=== PATIENT | male | born 1985 | race Caucasian/White ===

== ENCOUNTER 2016-10-09 12:13 | Emergency (ER) | payer SELFPAY ==
[2016-10-09 12:39] VITALS: BP 113/69
--- NOTE | 2016-10-09 15:01 | ERNOTE ---
Medical Problem HPI - Narrative Date of Service: 10/09/16 - General Chief Complaint: Nausea/Vomiting Time Seen by Provider: 10/09/16 14:34 Source: patient Exam Limitations: no limitations - Immun/Allergies/Home Medications Immunizations: IMMUNIZATION HX Immunizations Up to Date No History of Influenza Vaccine No Hx Pneumococcal Vaccination No Allergies/Adverse Reactions: Allergies No Known Allergies Allergy (Verified 10/09/16 12:39) Home Medications: HOME MEDICATIONS Ondansetron [Zofran Odt] 4 mg PO Q6H PRN #20 tab 10/09/16 [Last Taken Unknown] - History of Present History Narrative: Pt. comes in with c/o nausea and vomiting since 0200 this morning. Pt. states that it has been accompanied by rhinorrhea, cough, and sore throat. Pt. denies any chest pain or abd pain. Pt. denies any alleviating factors, aggravating factors, or prehospital treatment. Review of Systems - Review of Systems Constitutional: Present: no symptoms reported, decreased activity level. Absent : recent illness, fever, chills, fatigue, malaise ENT: Present: nose congestion, nasal drainage, sore throat Respiratory: Present: cough. Absent: shortness of breath, wheezing Cardiology: Present: no symptoms reported. Absent: chest pain, palpitations, edema Gastrointestinal/Abdominal: Present: nausea, vomiting. Absent: diarrhea, constipation, abdominal pain Genitourinary: Present: no symptoms reported Musculoskeletal: Present: no symptoms reported. Absent: back pain, joint pain Skin: Present: no symptoms reported Neurological: Present: no symptoms reported. Absent: headache, dizziness/light- headedness, numbness, tingling All Other Systems: All systems neg except as marked - Patient's Past Medical History Patient History - Medical: Anxiety, Headache, Migraines Patient History - Cardiac/Respiratory: Asthma Patient History - Cancer: No Hx of Cancer Patient History - Surgical Procedures: Appendectomy, T & A - Social History Living Situations: home Alcohol Use: rarely Drug Use: none Physical Exam - Physical Exam General Appearance: Present: wd/wn, alert, no apparent distress Eye Exam: Normal inspection: bilateral, PERRL: bilateral, EOMI: bilateral Ears, Nose, Throat: Present: hearing grossly normal, nasal congestion, sinus pain/drainage, pharyngeal erythema Neck: Present: normal inspection, nontender. Absent: lymphadenopathy (R), lymphadenopathy (L) Respiratory: Present: no respiratory distress, normal breath sounds, no accessory muscle use, chest nontender, lungs clear Cardiovascular/Chest: Present: regular rate, rhythm, no murmur, normal peripheral pulses Gastrointestinal/Abdominal: Present: normal bowel sounds, nontender, nondistended, soft, no organomegaly Back Exam: Present: normal inspection Extremity Exam: Present: normal inspection Neurological Exam: Present: alert, oriented, normal mood/affect, no motor/ sensory deficits Skin Exam: Present: warm/dry, pallor. Absent: skin rash ED Progress - Results and Orders Patient's Lab Results:: I have reviewed the patient's lab results. - Vital Signs Patient's Vital Signs:: I have reviewed the patient's vital signs. Vital Signs: Vital Signs 10/09/16 12:34 Temperature 35.9 C L Pulse Rate 87 Respiratory 12 Rate Blood Pressure 113/69 O2 Sat by Pulse 97 Oximetry - Progress/Reassessment Chief Complaint: Nausea/Vomiting Departure - Departure Clinical Impression: Acute gastroenteritis, Acute upper respiratory infection Disposition: Home self-care Condition: Good Instructions: Viral Gastroenteritis, Adult, [id number], Upper Respiratory Infection, Adult, [id number] Additional Instructions: Please follow up with primary provider if not improving in 2-3 days. Increase fluid intake. Prescriptions: Ondansetron [Zofran Odt] 4 mg PO Q6H PRN #20 tab PRN Reason: Nausea
== END 2016-10-09 15:58 | disposition home or self-care (01) ==
LOC: ER 12:13
DX: K52.9 Noninfective gastroenteritis and colitis, unspecified (principal); J06.9 Acute upper respiratory infection, unspecified

== ENCOUNTER 2016-11-20 11:43 | Emergency (ER) | payer SELFPAY ==
[2016-11-20 12:02] VITALS: BP 127/60
[2016-11-20] MEDS ORDERED: LIDOCAINE HCL 20 ML UDC MM ONE (12:11)
--- NOTE | 2016-11-20 12:18 | ERNOTE ---
Medical Problem HPI - Narrative Date of Service: 11/20/16 - General Chief Complaint: Flu Symptoms Time Seen by Provider: 11/20/16 12:10 Source: patient Exam Limitations: no limitations - Immun/Allergies/Home Medications Immunizations: IMMUNIZATION HX Immunizations Up to Date Yes History of Influenza Vaccine No Hx Pneumococcal Vaccination No Allergies/Adverse Reactions: Allergies No Known Allergies Allergy (Verified 11/20/16 12:02) Home Medications: HOME MEDICATIONS NK [No Home Medication] 11/20/16 [Last Taken Unknown] - History of Present History Narrative: Pt. comes in with c/o sore throat, L ear pain, body aches, fatigue, malaise, fever, and cough. Pt. denies any SOB, CP, or NVD. Pt. denies any prehospital treatment or alleviating factors but states that swallowing and cough exacerbates the sore throat. Pt. has been recently exposed to influenza and strep throat by daughter. Review of Systems - Review of Systems Constitutional: Present: fever, fatigue, malaise, decreased activity level. Absent: recent illness, chills, diaphoresis, weakness, weight loss EYE: Present: no symptoms reported. Absent: eye pain ENT: Present: ear pain - L, nose congestion, nasal drainage, sore throat. Absent: ear discharge, throat swelling Respiratory: Present: cough. Absent: shortness of breath, orthopnea, wheezing Cardiology: Present: no symptoms reported. Absent: chest pain, palpitations, edema Gastrointestinal/Abdominal: Present: no symptoms reported. Absent: nausea, vomiting, diarrhea, abdominal pain Genitourinary: Present: no symptoms reported Musculoskeletal: Present: muscle pain - generalized, joint pain - generalized Skin: Present: no symptoms reported. Absent: rash, change in hair/nails Neurological: Present: no symptoms reported. Absent: headache, dizziness/light- headedness, numbness, tingling All Other Systems: All systems neg except as marked - Patient's Past Medical History Patient History - Medical: Anxiety, Headache, Migraines Patient History - Cardiac/Respiratory: No pertinent hx Patient History - Cancer: No Hx of Cancer Patient History - Surgical Procedures: Appendectomy, T & A Patient History - Other: None - Social History Living Situations: home Abuse History: No History of abuse Psych History: Hx of Anxiety Smoking Status: Current every day smoker Have you smoked in the past 12 months: Yes Alcohol Use: rarely Drug Use: none - Immunizations Immunizations Up to Date: Yes Hx Pneumococcal Vaccination: No History of Influenza Vaccine: No Physical Exam - Physical Exam General Appearance: Present: wd/wn, alert, no apparent distress Eye Exam: Normal inspection: bilateral, PERRL: bilateral, EOMI: bilateral Ears, Nose, Throat: Present: hearing grossly normal, nasal congestion, pharyngeal erythema, other - clear PND. Absent: abnormal TM (R), abnormal TM (L ), pharyngeal swelling Neck: Present: nontender, lymphadenopathy (R) - ant. cervical, lymphadenopathy ( L) - ant. cervical Respiratory: Present: no respiratory distress, normal breath sounds, no accessory muscle use, chest nontender, lungs clear Cardiovascular/Chest: Present: regular rate, rhythm, no murmur, normal peripheral pulses Gastrointestinal/Abdominal: Present: normal bowel sounds, nontender, nondistended, soft, no organomegaly Back Exam: Present: normal inspection, normal range of motion, no CVA tenderness , no vertebral tenderness Extremity Exam: Present: normal inspection, non-tender, no edema, normal range of motion Neurological Exam: Present: alert, oriented, normal mood/affect, no motor/ sensory deficits Skin Exam: Present: warm/dry, pallor. Absent: diaphoresis ED Progress - Results and Orders Patient's Lab Results:: I have reviewed the patient's lab results. - Vital Signs Patient's Vital Signs:: I have reviewed the patient's vital signs. Vital Signs: Vital Signs 11/20/16 11:59 Temperature 36.7 C Pulse Rate 107 H Respiratory 14 Rate Blood Pressure 127/60 O2 Sat by Pulse 98 Oximetry - Progress/Reassessment Chief Complaint: Flu Symptoms Departure - Departure Clinical Impression: Upper respiratory infection Qualifiers: URI type: unspecified viral URI Qualified Code(s): J06.9 - Acute upper respiratory infection, unspecified; B97.89 - Other viral agents as the cause of diseases classified elsewhere Disposition: Home self-care Condition: Good Instructions: Upper Respiratory Infection, Adult, [id number], Form - Excuse from Work, School, or Physical Activity Additional Instructions: Please start Day quil per bottle directions daily and chloraseptic per bottle directions daily. If this lasts for more than a week without improving please follow up with your PCP.
== END 2016-11-20 12:46 | disposition home or self-care (01) ==
LOC: ER 11:43
DX: J06.9 Acute upper respiratory infection, unspecified (principal); B97.89 Other viral agents as the cause of diseases classified elsewhere; Z72.0 Tobacco use

== ENCOUNTER 2016-11-30 05:33 | Emergency (ER) | payer SELFPAY ==
[2016-11-30 05:52] VITALS: BP 96/75
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
[2016-11-30] MEDS ORDERED: TETRACAINE HCL 150 DROP BTL ONE (05:56)
== END 2016-11-30 06:18 | disposition home or self-care (01) ==
LOC: ER 05:33
DX: H10.12 Acute atopic conjunctivitis, left eye (principal); Z72.0 Tobacco use

== ENCOUNTER 2017-01-07 13:12 | Emergency (ER) | payer SELFPAY ==
[2017-01-07] MEDS ORDERED: ONDANSETRON 4 MG TAB.RAPDIS PO ONE (14:36)
[2017-01-07] MEDS ORDERED: ONDANSETRON 4 MG TAB.RAPDIS ONE (14:40)
--- NOTE | 2017-01-07 14:45 | ERNOTE ---
Abdominal HPI - Narrative Date of Service: 01/07/17 - General Chief Complaint: Abdominal Pain Time Seen by Provider: 01/07/17 14:05 Source: patient Exam Limitations: no limitations - Immun/Allergies/Home Medications Immunizatons: IMMUNIZATION HX Immunizations Up to Date Yes History of Influenza Vaccine No Hx Pneumococcal Vaccination No Allergies/Adverse Reactions: Allergies No Known Allergies Allergy (Verified 11/30/16 05:53) Home Medications: HOME MEDICATIONS NK [No Home Medication] 01/07/17 [Last Taken Unknown] - History of Present Illness Narrative: Pt. comes in with c/o BLQ and LUQ abd pain with NVD for two days. Pt. denies any SOB, CP, fever, constipation, any correlation between abdominal pain and eating or defecation. Pt. denies any alleviating or aggravating factors, but does state that the episodes have overall lessened and improved. Review of Systems - Review of Systems Constitutional: Present: no symptoms reported. Absent: recent illness, fever, chills, weakness, fatigue, malaise EYE: Present: no symptoms reported ENT: Present: no symptoms reported Respiratory: Present: no symptoms reported. Absent: shortness of breath, cough , wheezing Cardiology: Present: no symptoms reported. Absent: chest pain, palpitations, edema Gastrointestinal/Abdominal: Present: nausea, vomiting, diarrhea, abdominal pain , eating less, drinking less. Absent: constipation Genitourinary: Present: no symptoms reported. Absent: frequency, pain, dysuria , decreased urinary output Musculoskeletal: Present: no symptoms reported. Absent: back pain, joint pain Skin: Present: no symptoms reported Neurological: Present: no symptoms reported. Absent: headache, dizziness/light- headedness, weakness, numbness All Other Systems: All systems neg except as marked - Patient's Past Medical History Patient History - Medical: Anxiety, Depression, Headache, Migraines Patient History - Cardiac/Respiratory: No pertinent hx Patient History - Cancer: No Hx of Cancer Patient History - Surgical Procedures: Appendectomy, T & A Patient History - Other: None - Social History Living Situations: home Abuse History: No History of abuse Psych History: Hx of Anxiety, Hx of Depression Smoking Status: Current every day smoker Have you smoked in the past 12 months: Yes Do you dip or chew tobacco: No Patient requests Smoking Cessation Consult: No Initiate information on Smoking Cessation: No Alcohol Use: none Drug Use: none - Immunizations Immunizations Up to Date: Yes Hx Pneumococcal Vaccination: No History of Influenza Vaccine: No Physical Exam - Physical Exam General Appearance: Present: wd/wn, alert, no apparent distress Eye Exam: Normal inspection: bilateral, PERRL: bilateral, EOMI: bilateral Ears, Nose, Throat: Present: normal ENT inspection Neck: Present: normal inspection, nontender. 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 Absent: pallor, skin rash ED Progress - Date and Time Seen: Date and Time: 01/07/17 18:58 Pt. is states that he is unable to stay for CT scan as he needs to go take care of kids. Am concerned that pt. possible pancreatitis will worsen and will increase his mortality risk. Pt. states that he understands the risks and will follow up when he can. 01/07/17 19:08 - Vital Signs Patient's Vital Signs:: I have reviewed the patient's vital signs. Vital Signs: Vital Signs 01/07/17 13:45 Temperature 36.8 C Pulse Rate 91 Respiratory 17 Rate Blood Pressure 118/61 O2 Sat by Pulse 96 Oximetry - X-Ray X-Ray #1 X-Ray: abdomen Interpretation: Reviewed by me X-ray Comments: prominent nuchal folds, stool retention, non obstructed bowel gas pattern - Progress/Reassessment Chief Complaint: Abdominal Pain Departure - Departure Clinical Impression: Abdominal pain Qualifiers: Abdominal location: left upper quadrant Qualified Code(s): R10.12 - Left upper quadrant pain Disposition: Against medical advice Condition: Fair
[2017-01-07 14:59] LABS: Hematocrit 43.2 % (42.0-52.0); Hemoglobin 14.1 gm/dL (13.5-18.0); Mean Cell Volume 93.5 fl (78-100); Mean Corpuscular Hemoglobin 30.5 pg (27-31); Mean Corpuscular Hgb Conc 32.6 g/dl (32-36); Mean Platelet Volume 9.8 fl (6.0-9.5); Neutrophil # 3.2 K/mm3 (1.3-6.0); Platelet Count 267 K/mm3 (150-450); Red Blood Count 4.62 M/mm3 (4.7-6.0); Red Cell Distribution Width 14.9 % (11.5-14.0); White Blood Count 5.1 K/mm3 (4.0-10.5)
[2017-01-07 15:02] LABS: Urine Bilirubin Negative (NEGATIVE); Urine Blood Negative /ul (NEGATIVE); Urine Ketone Negative (NEGATIVE); Urine Nitrite Negative (NEGATIVE); Urine Protein Negative (NEGATIVE); Urine Specific Gravity >=1.030 SP.GR. (1.005-1.030); Urine Urobilinogen Normal (NORMAL)
[2017-01-07 15:04] LABS: Urine Appearance Clear; Urine Color Yellow
[2017-01-07 15:08] LABS: Urine Bacteria None Seen; Urine RBC None Seen /hpf (0-5); Urine WBC None Seen /hpf (0-5)
[2017-01-07 15:12] LABS: Albumin * 4.4 gm/dl (3.4-5.0); Anion Gap 10.5 mmol/L (6.8-13.8); BUN/Creatinine Ratio 17.4 (9.0-21.6); Bilirubin, Total 0.3 mg/dL (0.0-1.1); Ca. Corrected For Albumin 8.3 mg/dL (8.4-10.2); Calcium * 8.9 mg/dL (7.9-10.9); Carbon Dioxide 31.7 mmol/L (24-32.6); Potassium 4.2 mmol/L (3.4-4.6); Total Protein 8.1 gm/dL (6.2-8.2)
[2017-01-07 15:37] VITALS: BP 117/65
[2017-01-07] MEDS ORDERED: DIATRIZOATE MEGLU/DIATRIZO SOD 30 ML BTL ONE (16:46)
== END 2017-01-07 16:56 | disposition left against medical advice (07) ==
LOC: ER 13:12
DX: R10.12 Left upper quadrant pain (principal); Z72.0 Tobacco use
CPT/HCPCS: 36415; 74020; 80053; 81001; 82150; 83690; 85025; 99284; G0481

== ENCOUNTER 2017-01-07 20:59 | Emergency (ER) | payer SELFPAY ==
[2017-01-07] MEDS ORDERED: DIATRIZOATE MEGLU/DIATRIZO SOD 30 ML BTL ONE (21:18)
[2017-01-07] MEDS ORDERED: DIATRIZOATE MEGLU/DIATRIZO SOD 30 ML BTL PO ONE (21:19)
--- NOTE | 2017-01-07 21:27 | ERNOTE ---
Abdominal HPI - General Chief Complaint: Abdominal Pain Time Seen by Provider: 01/07/17 21:20 Source: patient, family Exam Limitations: no limitations - Immun/Allergies/Home Medications Immunizatons: IMMUNIZATION HX Immunizations Up to Date Yes History of Influenza Vaccine No Hx Pneumococcal Vaccination No Allergies/Adverse Reactions: Allergies No Known Allergies Allergy (Verified 11/30/16 05:53) Home Medications: HOME MEDICATIONS Omeprazole 40 mg PO DAILY #30 capsule. 01/07/17 [Last Taken Unknown] Sucralfate [Carafate Suspension] 1 g PO QID #40 udc 01/07/17 [Last Taken Unknown ] - History of Present Illness Narrative: pt was seen earlier in this ED for abdominal pain and had to leave to take care of his children before a CT scan could be done. He returns willing to have a CT scan if still indicated. In review of previous visit, labs were mostly benign but lipase was elevated at 636. I suggested we go ahead with CT as previously recommended. Pt is agreeable to that plan Timing: getting worse Quality: moderate Activities at Onset: none Modifying Factors - (Worsens): Present: movement Associated Symptoms: Present: back pain - mild Review of Systems - Review of Systems Constitutional: Absent: recent illness EYE: Present: no symptoms reported ENT: Present: no symptoms reported Respiratory: Present: no symptoms reported Cardiology: Present: no symptoms reported Gastrointestinal/Abdominal: Present: See HPI, nausea Genitourinary: Present: no symptoms reported Musculoskeletal: Present: back pain - mild Skin: Absent: rash Neurological: Present: no symptoms reported Endocrine: Present: no symptoms reported Hematologic/Lymphatic: Present: no symptoms reported Psych: Present: no symptoms reported - Patient's Past Medical History Patient History - Medical: Anxiety, Depression, Headache, Migraines Patient History - Cardiac/Respiratory: No pertinent hx Patient History - Cancer: No Hx of Cancer Patient History - Surgical Procedures: Appendectomy, T & A Patient History - Other: None - Social History Living Situations: home Abuse History: No History of abuse Psych History: Hx of Anxiety, Hx of Depression Smoking Status: Current every day smoker Have you smoked in the past 12 months: Yes Do you dip or chew tobacco: No Patient requests Smoking Cessation Consult: No Initiate information on Smoking Cessation: No Alcohol Use: none Drug Use: none - Immunizations Immunizations Up to Date: Yes Hx Pneumococcal Vaccination: No History of Influenza Vaccine: No Physical Exam - Physical Exam General Appearance: Present: wd/wn, alert, no apparent distress Eye Exam: Normal inspection: bilateral Ears, Nose, Throat: Present: normal ENT inspection Neck: Present: normal inspection Respiratory: Present: no respiratory distress, normal breath sounds Gastrointestinal/Abdominal: Present: normal bowel sounds, tenderness - epigastrium and LUQ near the midline Back Exam: Present: CVA tenderness (L) - mild Extremity Exam: Present: normal inspection, normal range of motion Neurological Exam: Present: alert, oriented, normal mood/affect Skin Exam: Present: normal color, warm/dry Lymphatic Exam: Present: no adenopathy ED Progress - Results and Orders Patient's Lab Results:: I have reviewed the patient's lab results. - Previous results: h/h WBC 5, platelets 267. ALT- 105, lipase 636 CMP otherwise WNL. UA negative except SG > 1.030. ETOH neg - Vital Signs Patient's Vital Signs:: I have reviewed the patient's vital signs. Vital Signs: Vital Signs 01/07/17 01/07/17 01/07/17 13:45 15:36 21:07 Temperature 36.8 C 37.4 C Pulse Rate 101 H Respiratory 16 Rate Blood Pressure 117/65 117/54 O2 Sat by Pulse 98 Oximetry - X-Ray X-Ray #1 X-Ray: abdomen Interpretation: Reviewed by me X-ray Comments: Abdominal films from previous visit today show enlarged gastric folds suggesting gastritis - CT/Ultrasound CT/Ultrasound Narrative: CT abd/pelvis Mild distenstion of the stomach filled with oral contrast and recently ingested meal. partially contracted gallbladder. Bowel, kidneys, appendix normal - Progress/Reassessment Chief Complaint: Abdominal Pain Progress:: Improved - somewhat after GI coctail Departure - Departure Clinical Impression: Gastritis Qualifiers: Gastritis type: unspecified gastritis Chronicity: acute Gastritis bleeding: presence of bleeding unspecified Qualified Code(s): K29.00 - Acute gastritis without bleeding Disposition: Home Follow Up Needed Condition: Good Instructions: Gastritis, Adult, [id number] Additional Instructions: Take medications daily at about the same time. Avoid alcohol, spicy foods. follow up with your regular doctor in 1-2 weeks to confirm improvement or need for stomach scope (EGD). Prescriptions: Omeprazole 40 mg PO DAILY #30 capsule. Sucralfate [Carafate Suspension] 1 g PO QID #40 [facility] [place]
[2017-01-07] MEDS ORDERED: SUCRALFATE 1 G/10 ML UDC PO ONE (23:37)
[2017-01-07] MEDS ORDERED: LIDOCAINE HCL 20 ML UDC PO ONE (23:37)
[2017-01-07] MEDS ORDERED: MAG HYDROX/ALUMINUM HYD/SIMETH 30 ML UDC PO ONE (23:37)
[2017-01-07] MEDS ORDERED: PANTOPRAZOLE SODIUM 40 MG in NORMAL SALINE 100 ML IV ONE (23:38)
[2017-01-07] MEDS ORDERED: PANTOPRAZOLE SODIUM 40 MG/100 ML PIGGYBACK IV ONE (23:45)
[2017-01-08 00:28] VITALS: BP 132/82
== END 2017-01-08 00:20 | disposition home or self-care (01) ==
LOC: ER 20:59
DX: K29.00 Acute gastritis without bleeding (principal); Z72.0 Tobacco use

== ENCOUNTER 2017-05-01 14:25 | Emergency (ER) | payer SELFPAY ==
[2017-05-01 14:37] VITALS: BP 120/68
[2017-05-01] MEDS ORDERED: IBUPROFEN 400 MG TABLET ONE (14:55)
[2017-05-01] MEDS: IBUPROFEN 400 MG TABLET PO ONE (14:56)
--- NOTE | 2017-05-01 14:57 | ERNOTE ---
Back Pain ER HPI Presenting Symptoms: injury/pain to back Time Seen by Provider: 05/01/17 14:48 Source: patient Exam Limitations: no limitations Immunizations: IMMUNIZATION HX Immunizations Up to Date Yes History of Influenza Vaccine Yes Hx Pneumococcal Vaccination Yes Allergies/Adverse Reactions: Allergies No Known Allergies Allergy (Verified 05/01/17 14:37) Home Medications: HOME MEDICATIONS Cyclobenzaprine HCl [Flexeril] 10 mg PO TID PRN #30 tab 05/01/17 [Last Taken Unknown] Ibuprofen [Motrin] 800 mg PO TID PRN #60 tab 05/01/17 [Last Taken Unknown] Narrative: patient started to have back pain yesterday while he was welding in his garage, no definite injury, radiation down his left leg Date (Duration): 05/01/17 Timing: Reports: constant Quality/Severity: Reports: severe Location of pain: Reports: lower back, radiating to lf thigh/leg Recent Injury?: Reports: no Associated Symptoms: Denies: fever/chills, sweating, constipation/incontinence, nausea/vomiting, problems urinating, difficulty walking, numbess/weakness in legs Prior Treament: Denies: recently seen Review of Systems - Review of Systems Constitutional: Absent: recent illness, fever ENT: Absent: nose congestion Respiratory: Absent: shortness of breath Cardiology: Absent: chest pain Gastrointestinal/Abdominal: Absent: nausea, abdominal pain Genitourinary: Present: no symptoms reported Musculoskeletal: Present: See HPI Neurological: Absent: weakness, numbness - Patient's Past Medical History Patient History - Medical: Anxiety, Depression, Headache, Migraines Patient History - Cardiac/Respiratory: No pertinent hx Patient History - Cancer: No Hx of Cancer Patient History - Surgical Procedures: Appendectomy, T & A Patient History - Other: None - Social History Living Situations: home Abuse History: No History of abuse Psych History: Hx of Anxiety, Hx of Depression Smoking Status: Current every day smoker Alcohol Use: none Drug Use: none - Immunizations Immunizations Up to Date: Yes Hx Pneumococcal Vaccination: Yes History of Influenza Vaccine: Yes Physical Exam - Physical Exam General Appearance: Present: wd/wn, alert, mild distress Respiratory: Present: no respiratory distress, normal breath sounds, no accessory muscle use, lungs clear Cardiovascular/Chest: Present: regular rate, rhythm, no murmur Back Exam: Present: normal inspection, vertebral tenderness - lumbar, muscle spasm - left lumbar paraspinal Extremity Exam: Present: normal inspection, pedal edema, other - left back pain worse with straight leg raise bilateral Neurological Exam: Present: alert, oriented, normal mood/affect, no motor/ sensory deficits Skin Exam: Present: normal color, warm/dry ED Progress - Vital Signs Patient's Vital Signs:: I have reviewed the patient's vital signs. Vital Signs: Vital Signs 05/01/17 14:33 Temperature 37.2 C Pulse Rate 81 Respiratory 15 Rate Blood Pressure 120/68 O2 Sat by Pulse 95 Oximetry - Progress/Reassessment Chief Complaint: Back Pain Departure Clinical Impression: Sciatica Qualifiers: Laterality: left Qualified Code(s): M54.32 - Sciatica, left side - Departure Disposition: Home self-care Condition: Good Instructions: Sciatica, [id number], Form - Excuse from Work, School, or Physical Activity Referrals: Parveen Felix DO [Staff Physician] - Prescriptions: Cyclobenzaprine HCl [Flexeril] 10 mg PO TID PRN #30 tab PRN Reason: MUSCLE SPASMS Ibuprofen [Motrin] 800 mg PO TID PRN #60 tab PRN Reason: Pain
== END 2017-05-01 15:01 | disposition home or self-care (01) ==
LOC: ER 14:25
DX: M54.32 Sciatica, left side (principal); F17.210 Nicotine dependence, cigarettes, uncomplicated

== ENCOUNTER 2017-07-24 00:02 | Emergency (ER) | payer SELFPAY ==
--- NOTE | 2017-07-24 00:15 | ERNOTE ---
Upper Extremity HPI - Narrative Date of Service: 07/24/17 - General Extremities Pain Location: wrist: left Time Seen by Provider: 07/24/17 00:08 Source: patient - aspiration - Immun/Allergies/Home Medications Immunizations: IMMUNIZATION HX Immunizations Up to Date Yes History of Influenza Vaccine Yes Hx Pneumococcal Vaccination Yes Allergies/Adverse Reactions: Allergies Allergy/AdvReac Type Severity Reaction Status Date / Time No Known Allergies Allergy Verified 07/24/17 00:19 Home Medications: HOME MEDICATIONS Ibuprofen [Motrin] 800 mg PO TID PRN #60 tab 05/01/17 [Last Taken Unknown] HYDROcodone/ACETAMINOPHEN [[place] 5-325] 1 - 2 each PO Q4H PRN #30 tablet [Last Taken Unknown] - History of Present Illness Narrative: This is a 31-year-old male who comes to the emergency department complaining of left hand pain. The patient says that he punched a wall about an hour ago. He says he was upset. He had immediate onset of pain in the fifth met carpal area. He has never injured this before. He denies any other complaints Review of Systems - Review of Systems Constitutional: Present: no symptoms reported EYE: Present: no symptoms reported ENT: Present: no symptoms reported Respiratory: Present: no symptoms reported Cardiology: Present: no symptoms reported Gastrointestinal/Abdominal: Present: no symptoms reported Genitourinary: Present: no symptoms reported Musculoskeletal: Present: joint pain, other - pain to the left fifth Endocrine: Present: no symptoms reported Hematologic/Lymphatic: Present: no symptoms reported Psych: Present: no symptoms reported All Other Systems: All systems neg except as marked - Patient's Past Medical History Patient History - Medical: Anxiety, Depression, Headache, Migraines Patient History - Cardiac/Respiratory: No pertinent hx Patient History - Cancer: No Hx of Cancer Patient History - Surgical Procedures: Appendectomy, T & A Patient History - Other: None - Social History Abuse History: No History of abuse Psych History: Hx of Anxiety, Hx of Depression - Immunizations Immunizations Up to Date: Yes Hx Pneumococcal Vaccination: Yes History of Influenza Vaccine: Yes Physical Exam - Physical Exam General Appearance: Present: wd/wn, alert, no apparent distress Head Exam: Present: normal inspection, no evidence of injury Eye Exam: Normal inspection: bilateral Ears, Nose, Throat: Present: normal ENT inspection, normal pharynx Neck: Present: normal inspection, nontender Respiratory: Present: no respiratory distress, normal breath sounds, no accessory muscle use, chest nontender, lungs clear Cardiovascular/Chest: Present: regular rate, rhythm, no murmur, normal peripheral pulses Gastrointestinal/Abdominal: Present: normal bowel sounds, nontender, nondistended, soft Back Exam: Present: normal inspection, normal range of motion, no CVA tenderness Extremity Exam: Present: normal inspection, other - the patient has swelling over the fifth metacarpal in the mid shaft area. Good range of motion of all distal joints. Good capillary refill. Sensation is intact. No other bony tenderness except perhaps the fourth metacarpal which seems to be more related to swelling Neurological Exam: Present: alert, oriented, normal mood/affect, no motor/ sensory deficits Skin Exam: Present: normal color, warm/dry, other - the patient has a 5 cm laceration proximal from the proximal wrist crease of the left hand. It is just through the skin. There is no exposed tendons or nerves. There is Lymphatic Exam: Present: no adenopathy ED Progress - Vital Signs Patient's Vital Signs:: I have reviewed the patient's vital signs. - X-Ray X-Ray #1 X-Ray: hand Interpretation: Interp. by me X-ray Comments: Boxer's fracture with 75 of angulation midshaft metacarpal Procedures Comments: I placed an ulnar gutter splint on the patient. Manually reduced using distraction. Repeat x-ray ordered. Distal neurovascular intact afterwards. Departure Clinical Impression: Boxers fracture - Departure Disposition: Home self-care Condition: Good Instructions: Boxer's Fracture Additional Instructions: As we discussed to have a fracture of the middle shaft of your fifth finger in the hand. This will heal up well, but it's going to be very sore for several weeks. I placed him in a splint. Keep the splint on until you're seen by orthopedics at follow-up. I want you to call a bone doctor. Tell them you were seen in the ER and asked to be worked into the schedule. He can take the prescribed medicine to help with severe pain. No driving or operating machinery while taking this. If you develop new or worrisome symptoms he should return to the ER Prescriptions: HYDROcodone/ACETAMINOPHEN [[place] 5-325] 1 - 2 each PO Q4H PRN #30 tablet PRN Reason: Pain
[2017-07-24] MEDS ORDERED: HYDROcodone/ACETAMINOPHEN 1 EACH TABLET PO ONE (00:49)
[2017-07-24] MEDS ORDERED: HYDROcodone/ACETAMINOPHEN 1 EACH TABLET ONE (00:51)
[2017-07-24 01:21] VITALS: BP 122/79
== END 2017-07-24 01:19 | disposition home or self-care (01) ==
LOC: ER 00:02
PROC: 0PSQXZZ Reposition Left Metacarpal, External Approach (ICD-10-PCS; principal; 2017-07-24)
DX: M84.442A Pathological fracture, left hand, initial encounter for fracture (principal); X58.XXXA Exposure to other specified factors, initial encounter